=== PATIENT | female | born 2000 | race Hispanic/Latino ===

== ENCOUNTER 2024-05-05 13:27 | Emergency (ER) | payer OTHER ==
[2024-05-05 14:46] LABS: Absolute Basophils 0.1 K/uL (0-0.5); Absolute Eosinophils 0.1 K/uL (0-0.5); Absolute Lymphocytes (CBC) 1.4 K/uL (0.7-4.9); Absolute Monocytes 0.7 K/uL (0.1-1.3); Absolute Neutrophil 8.4 K/uL (1.8-8.0); Basophils % 0.7 % (0-1.3); Eosinophils % 0.6 % (0-4.4); Hemoglobin 12.3 g/dL (12.0-15.0); Lymphocytes % 12.8 % (15.3-44.8); MCH 24.5 pg (27.0-35.0); MCHC 32.4 g/dL (32.0-36.0); MCV 75.4 fL (80-100); MPV 9.7 fL (7.6-11.3); Monocytes % 6.2 % (3.3-12.3); Neutrophils % 79.7 % (41.7-73.7); Nucleated Red Blood Cells % 0.1 % (0-0); Platelets 314 thou/uL (152-406); RBC Red Blood Cell Count 5.04 M/uL (3.86-4.86); Red Cell Distribution Width 15.9 % (12.1-15.2)
[2024-05-05 14:49] LABS: Specific Gravity > 1.030 (1.005-1.030)
[2024-05-05 14:51] LABS: Specific Gravity > 1.030 (1.005-1.030); Sqamous Epithelial 20-50 /HPF (None Seen); Urine Bacteria <20 /HPF (<20); Urine Bilirubin NEGATIVE (Negative); Urine Blood Negative (Negative); Urine Clarity Extremely Turbid (Clear); Urine Color Yellow (Yellow); Urine Crystals Unidentified Few /HPF (None Seen); Urine Culture Reflex Order NOT NEEDED; Urine Glucose TRACE (Negative); Urine Ketones NEGATIVE (Negative); Urine Microscopic Reflex YN ORDER UMIC; Urine Mucus 4+ /HPF (None Seen); Urine Nitrite NEGATIVE (Negative); Urine Protein 1+ (Negative); Urine Urobilinogen Normal (Normal); Urine WBC 20-50 /HPF (<5); Urine Yeast (Budding) Occasional /HPF (None Seen); Urine pH 5.5 (5.0-7.0)
[2024-05-05 15:03] LABS: Albumin 3.7 g/dL (3.4-5.0); Albumin/Globulin Ratio 0.9 (1.1-1.8); Anion Gap 9.6 mEq/L (5.0-15.0); Globulin 4.1 g/dL (2.3-3.5); Potassium 3.6 mEq/L (3.5-5.1); Protein, Total 7.8 g/dL (6.4-8.2)
--- NOTE | 2024-05-05 16:23 | RAD REPORT ---
EXAMINATION: XR Foot Right 3 View CLINICAL INDICATION: Female, 23 years old. [facility] MAIN PAIN Bed: TECHNIQUE: 3 view radiographs of the right foot were obtained. COMPARISON: No prior exam. FINDINGS: No evidence of fracture or dislocation. Normal alignment. No evidence of arthropathy or oth er focal bone lesion. Soft tissues are unremarkable. No significant degenerative changes. IMPRESSION: No acute or significant abnormalities.
--- NOTE | 2024-05-05 16:24 | RAD REPORT ---
EXAMINATION: XR RIGHT HUMERUS HISTORY: PAIN RIGHT TECHNIQUE: 2 views of the right humerus were obtained. COMPARISON: None FINDINGS: No bone or joint abnormality detected. Joint alignment is maintained. Surrounding soft tiss ues are unremarkable as best evaluated.
--- NOTE | 2024-05-05 16:25 | RAD REPORT ---
Exam: XR Forearm Right Clinical history: PAIN Technique: Radiographic views of the right forearm. Findings: No acute fracture or dislocation seen. No suspicious osseous lesion. Negative ulnar variance. No sign ificant degenerative changes. Surrounding soft tissues are unremarkable.
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
[2024-05-05 16:54] VITALS: TEMP 98.2; O2SAT 100
[2024-05-05 16:57] VITALS: BP 113/78
== END 2024-05-05 16:50 | disposition home or self-care (01) ==
LOC: ER 13:27
DX: M79.601 Pain in right arm (principal); M79.671 Pain in right foot; V47.5XXA Car driver injured in collision with fixed 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 object in traffic accident, initial encounter; G40.909 Epilepsy, unspecified, not intractable, without status epilepticus
CPT/HCPCS: 36415; 80053; 81001; 81025; 85025